=== PATIENT | male | born 1990 | race Hispanic/Latino ===

== ENCOUNTER 2020-06-07 11:55 | Emergency (ER) | payer BC, SELFPAY ==
[2020-06-07] MEDS ORDERED: IPRATROPIUM BROM 0.5MG/2.5ML ONE (12:40)
[2020-06-07] MEDS ORDERED: predniSONE 20 MG TAB ONE (12:41)
[2020-06-07] MEDS ORDERED: ALBUTEROL 2.5 MG/3 ML NEB SOL ONE (12:43)
--- NOTE | 2020-06-07 14:06 | RAD REPORT ---
EXAM DESCRIPTION: Mino Single View06/07/2020 12:54 pm CLINICAL HISTORY: Shortness of breath COMPARISON: none FINDINGS: Lungs are mildly to moderately hyperaerated with peribronchial thickening. The heart is normal size IMPRESSION: These findings may indicate reactive airway disease
--- NOTE | 2020-06-07 14:14 | ER ---
Nurse's Notes [facility] Name: Osvaldo Christianson Age: 29 yrs Sex: Male : 1990 Arrival Date: 06/07/2020 Time: 12:01 Bed 30 Private MD: Diagnosis: Acute bronchitis Presentation: 06/07 12:23 Chief complaint: Patient states: SOB and audible wheezing that began 4 days ago. Pt aa5 states "It's happened before when I vape but never this bad". 12:23 Coronavirus screen: shortness of breath. Ebola Screen: Patient negative for fever aa5 greater than or equal to 101.5 degrees Fahrenheit, and additional compatible Ebola Virus Disease symptoms. Initial Sepsis Screen: Does the patient meet any 2 criteria? HR > 90 bpm. Does the patient have a suspected source of infection? No. Patient's initial sepsis screen is negative. Risk Assessment: Do you want to hurt yourself or someone else? Patient reports no desire to harm self or others. Onset of symptoms was May 2020. 12:23 Acuity: KOREY 3 aa5 12:23 Method Of Arrival: Ambulatory aa5 Historical: - Allergies: 12:23 No Known Allergies; aa5 - PMHx: 12:23 None; aa5 - PSHx: 12:23 lymph node removerd right arm; aa5 - Immunization history:: Adult Immunizations unknown. - Social history:: Smoking status: Reported history of juuling and/or vaping. Screenin:30 Abuse screen: Denies threats or abuse. Nutritional screening: No deficits noted. aa5 Tuberculosis screening: No symptoms or risk factors identified. Fall Risk None identified. Assessment: 12:30 General: Appears uncomfortable, Behavior is calm, cooperative. Pain: Denies pain. aa5 Neuro: Level of Consciousness is awake, alert, obeys commands, Oriented to person, place, time, situation. Cardiovascular: Heart tones S1 S2 present Rhythm is regular. Respiratory: Airway is patent Respiratory effort is even, labored, Respiratory pattern is regular, symmetrical, tachypnea Breath sounds with wheezes bilaterally. GI: No signs and/or symptoms were reported involving the gastrointestinal system. : No signs and/or symptoms were reported regarding the genitourinary system. EENT: No signs and/or symptoms were reported regarding the EENT system. Derm: Skin is pink, warm \\T\\ dry. Musculoskeletal: Range of motion: intact in all extremities. 14:24 Reassessment: Patient is alert, oriented x 3, equal unlabored respirations, skin aa5 warm/dry/pink. Patient states feeling better. Patient states symptoms have improved. Vital Signs: 12:23 BP 145 / 82; Pulse 105; Resp 28 S; Temp 98.0(O); Pulse Ox 97% on R/A; aa5 ED Course: 12:01 Patient arrived in ED. mr 12:21 Norberto Ruiz PA is PHCP. [facility] 12:21 Carlton Simpson MD is Attending Physician. jmm 12:23 Arm band placed on. aa5 12:23 Patient has correct armband on for positive identification. aa5 12:31 Shira Gomez, RN is Primary Nurse. aa5 12:33 Triage completed. aa5 12:54 Chest Single View XRAY In Process Unspecified. EDMS 14:25 No provider procedures requiring assistance completed. Patient did not have IV access aa5 during this emergency room visit. Administered Medications: 12:30 Drug: predniSONE 60 mg Route: PO; aa5 14:24 Follow up: Response: No adverse reaction aa5 12:31 Drug: DuoNeb (albuterol 2.5 mg, ipratropium 0.5 mg) (3:1) (2.5 mg - 0.5 mg) 3 ml Route: aa5 Nebulizer; 12:55 Follow up: Response: No adverse reaction; Wheezing diminished aa5 Outcome: 14:14 Discharge ordered by . [facility] 14:24 Discharged to home ambulatory. aa5 14:24 Condition: improved 14:24 Discharge instructions given to patient, Instructed on discharge instructions, follow up and referral plans. medication usage, Demonstrated understanding of instructions, follow-up care, medications, Prescriptions given X 2. 14:25 Patient left the ED. aa5 Signatures: Dispatcher [employer] EDMS Norberto Ruiz PA PA jmm RiveraViv mr Shira Gomez, RN RN aa5
--- NOTE | 2020-06-07 14:14 | EDPHYS ---
Physician Documentation [facility] Name: Osvaldo Christianson Age: 29 yrs Sex: Male : 1990 Arrival Date: 06/07/2020 Time: 12:01 Bed 30 Private MD: ED Physician Carlton Simpson HPI: 06/07 12:25 This 29 yrs old Male presents to ER via Unassigned with complaints of jmm Breathing Difficulty, Wheezing. 12:25 The patient has shortness of breath at rest. Onset: The symptoms/episode began/occurred jmm gradually, 2 day(s) ago. Duration: The symptoms are continuous. The patient's shortness of breath is aggravated by nothing, is alleviated by nothing. Associated signs and symptoms: Pertinent negatives: fever. The patient has experienced a previous episode. This is a 29 year old male with no known chronic medical conditions that presents to the ED with complaints of wheezing and shortness of breath beginning approx 2 days ago. Patient states this has happened before and attributes this to his vaping. . Historical: - Allergies: 12:23 No Known Allergies; aa5 - PMHx: 12:23 None; aa5 - PSHx: 12:23 lymph node removerd right arm; aa5 - Immunization history:: Adult Immunizations unknown. - Social history:: Smoking status: Reported history of juuling and/or vaping. ROS: 12:25 Constitutional: Negative for fever, chills, and weight loss, Cardiovascular: Negative jmm for chest pain, palpitations, and edema. 12:25 Respiratory: Positive for shortness of breath, wheezing. 12:25 All other systems are negative. Exam: 12:25 Constitutional: This is a well developed, well nourished patient who is awake, alert, jmm and in no acute distress. Head/Face: atraumatic. Eyes: EOMI, no conjunctival erythema appreciated ENT: Moist Mucus Membranes Neck: Trachea midline, Supple Chest/axilla: Normal chest wall appearance and motion. Cardiovascular: Regular rate and rhythm. No edema appreciated 12:25 Abdomen/GI: Non distended, soft Back: Normal ROM Skin: General appearance color normal MS/ Extremity: Moves all extremities, no obvious deformities appreciated, no edema noted to the lower extremities Neuro: Awake and alert, normal gait Psych: Behavior is normal, Mood is normal, Patient is cooperative and pleasant 12:25 Respiratory: mild respiratory distress is noted, Respirations: normal, Breath sounds: wheezing: that is moderate, is heard diffusely. Vital Signs: 12:23 BP 145 / 82; Pulse 105; Resp 28 S; Temp 98.0(O); Pulse Ox 97% on R/A; aa5 MDM: 12:25 Patient medically screened. [facility] 14:12 Data reviewed: vital signs, nurses notes. Counseling: I had a detailed discussion with [facility] the patient and/or guardian regarding: the historical points, exam findings, and any diagnostic results supporting the discharge/admit diagnosis, radiology results, the need for outpatient follow up, to return to the emergency department if symptoms worsen or persist or if there are any questions or concerns that arise at home. ED course: Decreased wheezing on re evaluation. Patient states he feels much better. Patient will be prescribed oral steroids and inhaler and otherwise given strict return precautions. Patient understood and agrees with the plan of care. . 06/07 12:22 Order name: Chest Single View XRAY; Complete Time: 14:07 [facility] Administered Medications: 12:30 Drug: predniSONE 60 mg Route: PO; aa5 14:24 Follow up: Response: No adverse reaction aa5 12:31 Drug: DuoNeb (albuterol 2.5 mg, ipratropium 0.5 mg) (3:1) (2.5 mg - 0.5 mg) 3 ml Route: aa5 Nebulizer; 12:55 Follow up: Response: No adverse reaction; Wheezing diminished aa5 Disposition: 18:51 Co-signature as Attending Physician, Carlton Simpson MD I agree with the assessment and tw4 plan of care. Disposition: 06/07/20 14:14 Discharged to Home. Impression: Acute bronchitis. - Condition is Stable. - Discharge Instructions: Acute Bronchitis, Adult. - Prescriptions for Prednisone 20 mg Oral Tablet - take 3 tablet by ORAL route once daily for 5 days; 15 tablet. Albuterol Sulfate 90 mcg/actuation - inhale 1-2 puff by INHALATION route every 4-6 hours; 1 Inhaler. - Medication Reconciliation Form, Thank You Letter, Antibiotic Education, Prescription Opioid Use form. - Follow up: Private Physician; When: 2 - 3 days; Reason: Recheck today's complaints, Continuance of care, Re-evaluation by your physician. Signatures: Dispatcher [employer] Norberto Lane PA PA jmm Calderon, Audri, RN RN aa5 Carlton Simpson MD MD tw4 Corrections: (The following items were deleted from the chart) 14:25 14:14 06/07/2020 14:14 Discharged to Home. Impression: Acute bronchitis. Condition is aa5 Stable. Forms are Medication Reconciliation Form, Thank You Letter, Antibiotic Education, Prescription Opioid Use. Follow up: Private Physician; When: 2 - 3 days; Reason: Recheck today's complaints, Continuance of care, Re-evaluation by your physician. carolann
[2020-06-07 14:30] VITALS: BP 145/82; TEMP 98; O2SAT 97
== END 2020-06-07 14:25 | disposition home or self-care (01) ==
LOC: ER 11:55
DX: J20.9 Acute bronchitis, unspecified (principal); F17.290 Nicotine dependence, other tobacco product, uncomplicated
CPT/HCPCS: 71045; 99284; J7512

== ENCOUNTER 2022-01-22 11:14 | Emergency (ER) | payer OTHER ==
--- OUTSIDE RECORDS SUMMARY | 2022-01-22 11:21 | XMS REPORT | Continuity of Care Document ---
:1990 Author Organization [facility] t Address [address] [place] [address] Care Team Providers Name Role Phone Pcp, Patient Does Not Have A Primary Care Physician +[id number] Only, Ang Db Test Attending Clinician Unavailable Yosi CHILDCARE PROVIDER, Shi Attending Clinician SHI DELUCA Attending Clinician Unavailable Sergio GOODMAN, Dari Mcclure Attending Clinician Unavailable Jose GOODMAN, Catia Kahn Attending Clinician Unavailable SEJAL HEART Attending Clinician Unavailable Doctor Unassigned, [place] Attending Clinician Unavailable Payers Payer Name Policy Type Policy Effective Date Expiration Date Sour ce Number BCBS OF [id number] [facility] [place] Srinia giana [id number] [place] -Pres [phone] [id number], [place] [address]CBZ/POS Problems This patient has no known problems. Allergies, Adverse Reactions, Alerts Allergy Allergy Status Severity Reaction(s) Onset Inactive Treating Comm ents Source Name Type Date Date Clinician NO KNOWN Drug Active Univers ALLERGIE Class ity of S [facility] Social History Social Habit Start Date Stop Date Quantity Comments Source Exposure to Yes [facility] SARS-CoV-2 (event) Medica l [place] Sex Assigned At [birth year] [place] [facility] 00:00:00 00:00:00 [facility] Smoking Status Start Date Stop Date Source Unknown if ever smoked [facility] Medications This patient has no known medications. Procedures This patient has no known procedures. Encounters Start End Encounter Admission Attending Care Care Encounter Source Date/Time Date/Time Type Type Clinicians Facility Department ID 2020-11-26 2020-11-26 Laboratory Only, Ang Db Test [facility] [id number] Univers 10:16:48 10:26:48 Only YosiShi [facility] [id number] ity of [place] [id number] Nabeel as Sridhar?Blea [phone] [address] Medical Office Building 2020-11-26 2020-11-26 Outpatient R YOSI [facility] [id number] Univers 10:15:00 10:15:00 SHI ity [facility] 2020-11-26 2020-11-26 Telephone JENNIFER Hill [id number] Univers 00:00:00 00:00:00 Dari RUTLEDGE [id number] i ty of HOSPITAL [id number] Nabeel as [id number] [address] 2020-11-18 2020-11-18 Letter JENNIFER Garcia [id number] Univers 00:00:00 00:00:00 (Out) Catia RUTLEDGE [id number] it y of HOSPITAL [id number] Nabeel as [id number] [address] 2020-11-17 2020-11-17 Outpatient R SLY [facility] [id number] Univers 11:15:00 11:15:00 , SEJAL sanchez [facility] 2020-11-17 2020-11-17 Letter Doctor RODRIGUEZ [id number] Univers 00:00:00 00:00:00 (Out) UnassignedAAMIR [id number] ity of [place] HOSPITAL [id number] Nabeel as [phone] [address] 2020-11-17 2020-11-17 Letter Doctor RODRIGUEZ [id number] Univers 00:00:00 00:00:00 (Out) UnassignedAAMIR [id number] ity of [place] HOSPITAL [id number] Nabeel as [phone] [facility] [address] Results This patient has no known results.
[2022-01-22] MEDS ORDERED: METHYLPREDNISOLONE 125 MG INJ ONE (11:47)
[2022-01-22] MEDS ORDERED: ALBUTEROL 2.5 MG/3 ML NEB SOL ONE ×2 (11:47→13:09)
[2022-01-22] MEDS ORDERED: IPRATROPIUM BROM 0.5MG/2.5ML ONE (11:48)
[2022-01-22] MEDS ORDERED: MAGNESIUM SULFATE 1 gm IVPB 1 GM/100 ML BAG IV ONE (11:48)
--- NOTE | 2022-01-22 12:26 | RAD REPORT ---
EXAM DESCRIPTION: RAD - Chest Single View - 01/22/2022 12:22 pm CLINICAL HISTORY: Cough COMPARISON: Chest Single View dated 06/07/2020 FINDINGS: Lines: None. Lungs: No evidence of edema or pneumonia. Pleural: No significant pleural effusions or pneumothorax. Cardiac: The heart size is within normal limits. Mediastinum: Within normal limits. Bones: No acute fractures. Other: None IMPRESSION: No acute cardiopulmonary disease.
--- NOTE | 2022-01-22 13:22 | ER ---
Nurse's Notes [facility] Name: Osvaldo Christianson Age: 31 yrs Sex: Male : 1990 Arrival Date: 01/22/2022 Time: 11:17 Bed 12 Private MD: Diagnosis: Acute bronchitis, unspecified Presentation: 01/22 11:33 Chief complaint: Patient states: Difficulty breathing X 2-3 days. Pt reports this ld1 happening before. Coronavirus screen: At this time, the client does not indicate any symptoms associated with coronavirus-19. Ebola Screen: No symptoms or risks identified at this time. Initial Sepsis Screen: Does the patient meet any 2 criteria? No. Patient's initial sepsis screen is negative. Does the patient have a suspected source of infection? No. Patient's initial sepsis screen is negative. Risk Assessment: Do you want to hurt yourself or someone else? Patient reports no desire to harm self or others. Onset of symptoms was January 22, 2022. 11:33 Method Of Arrival: Ambulatory ld1 11:33 Acuity: KOREY 3 ld1 Triage Assessment: 11:33 General: Appears in no apparent distress. comfortable, Behavior is calm, cooperative, ld1 appropriate for age. Pain: Denies pain. EENT: No signs and/or symptoms were reported regarding the EENT system. Neuro: Level of Consciousness is awake, alert, obeys commands, Oriented to person, place, time, situation. Cardiovascular: Capillary refill < 3 seconds Patient's skin is warm and dry. Respiratory: Reports shortness of breath at rest on exertion Airway is patent Respiratory effort is even, labored, Onset: The symptoms/episode began/occurred suddenly, the patient has moderate shortness of breath. GI: Abdomen is flat, non-distended. : No signs and/or symptoms were reported regarding the genitourinary system. Derm: No signs and/or symptoms reported regarding the dermatologic system. Musculoskeletal: No signs and/or symptoms reported regarding the musculoskeletal system. Historical: - Allergies: 11:35 No Known Allergies; ld1 - PMHx: 11:35 None; ld1 - PSHx: 11:35 None; ld1 - Immunization history:: Adult Immunizations up to date. - Social history:: Smoking status: Patient reports the use of cigarette tobacco products, smokes one-half pack cigarettes per day, Patient uses alcohol, occasionally. Screenin:35 Abuse screen: Denies threats or abuse. Denies injuries from another. Nutritional bp screening: No deficits noted. Tuberculosis screening: No symptoms or risk factors identified. Fall Risk None identified. Assessment: 11:35 General: SEE TRIAGE NOTE. bp 12:15 Reassessment: PT MOVED TO RM 12. Cardiovascular: Rhythm is sinus tachycardia. bp Respiratory: Airway is patent Respiratory effort is labored, Breath sounds with wheezes bilaterally. 13:51 Reassessment: Patient appears in no apparent distress at this time. Patient and/or ph family updated on plan of care and expected duration. Pain level reassessed. Patient is alert, oriented x 3, equal unlabored respirations, skin warm/dry/pink. Patient states symptoms have improved. 13:53 Reassessment: D/C pending completion of neb tx. ph Vital Signs: 11:33 BP 113 / 80; Pulse 106; Resp 30; Temp 97.3(TE); Pulse Ox 93% on R/A; Weight 74.84 kg; ld1 Height 5 ft. 2 in. (157.48 cm); Pain 0/10; 12:15 BP 120 / 87; Pulse 102; Resp 18; Pulse Ox 100% ; bp 13:49 BP 118 / 75; Pulse 104; Resp 18; Temp 97.5; Pulse Ox 98% on R/A; ph 11:33 Body Mass Index 30.18 (74.84 kg, 157.48 cm) ld1 ED Course: 11:17 Patient arrived in ED. mr 11:18 Guera Bernard FNP-C is [facility]. kb 11:18 Vinayak Jackson MD is Attending Physician. kb 11:33 Arm band placed on right wrist. ld1 11:35 Triage completed. ld1 11:35 Patient has correct armband on for positive identification. Bed in low position. Call bp light in reach. Side rails up X2. 11:41 Narayan López, MAXINE is Primary Nurse. bp 11:55 Inserted saline lock: 20 gauge in right forearm, using aseptic technique. bp 12:23 Chest Single View XRAY In Process Unspecified. EDMS 14:24 No provider procedures requiring assistance completed. IV discontinued, intact, ph bleeding controlled, No redness/swelling at site. Pressure dressing applied. Administered Medications: 11:55 Drug: Magnesium Sulfate 1 grams Route: IVPB; Infused Over: 1 hrs; Site: right forearm; bp 13:00 Follow up: Response: No adverse reaction; IV Status: Completed infusion ph 11:55 Drug: SOLU-Medrol (methylPrednisoLONE) 125 mg Route: IVP; Site: right forearm; bp 13:50 Follow up: Response: No adverse reaction ph 11:55 Drug: DuoNeb (albuterol 2.5 mg, ipratropium 0.5 mg) (3:1) (2.5 mg - 0.5 mg) 3 ml Route: bp Nebulizer; 13:50 Follow up: Response: No adverse reaction ph 13:49 Drug: Albuterol 2.5 mg Route: Inhalation; ph 13:50 Follow up: Response: No adverse reaction ph Medication: 11:35 VIS not applicable for this client. bp Outcome: 13:22 Discharge ordered by . kb 14:24 Discharged to home ambulatory. ph 14:24 Condition: good 14:24 Discharge instructions given to patient, Instructed on discharge instructions, follow up and referral plans. medication usage, Demonstrated understanding of instructions, follow-up care, medications, Prescriptions given X 2. 14:25 Patient left the ED. ph Signatures: Dispatcher [employer] EDMS Guera Bernard FNP-C FNP-Abigail Phillipa Viv wan Alcira Jay RN RN Narayan López RN RN bp Juliette Healy, MAXINE RN ld1 Corrections: (The following items were deleted from the chart) 11:36 11:33 Pulse 106bpm; Resp 30bpm; Temp 97.3F Temporal; 74.84 kg; Height 5 ft. 2 in.; BMI: ld1 30.1; Pain 0/10; ld1 11:37 11:33 BP 113 / 80; Pulse 106bpm; Resp 30bpm; Temp 97.3F Temporal; 74.84 kg; Height 5 ld1 ft. 2 in.; BMI: 30.1; Pain 0/10; ld1
--- NOTE | 2022-01-22 13:23 | EDPHYS ---
Physician Documentation [facility] Name: Osvaldo Christianson Age: 31 yrs Sex: Male : 1990 Arrival Date: 01/22/2022 Time: 11:17 Bed 12 Private MD: ED Physician Vinayak Jackson HPI: 01/22 11:41 This 31 yrs old Male presents to ER via Ambulatory with complaints of kb Breathing Difficulty. 11:41 The patient has shortness of breath at rest. Onset: The symptoms/episode began/occurred kb 3 day(s) ago. Duration: The symptoms are continuous. The patient's shortness of breath is aggravated by exertion, is alleviated by nothing. Associated signs and symptoms: Pertinent positives: non-productive cough. Severity of symptoms: At their worst the symptoms were moderate in the emergency department the symptoms are unchanged. The patient has not experienced similar symptoms in the past. The patient has not recently seen a physician. Pt reports cough, congestion and shortness of breath that started a few days ago. States it feels the same as bronchitis he had last year. Historical: - Allergies: 11:35 No Known Allergies; ld1 - PMHx: 11:35 None; ld1 - PSHx: 11:35 None; ld1 - Immunization history:: Adult Immunizations up to date. - Social history:: Smoking status: Patient reports the use of cigarette tobacco products, smokes one-half pack cigarettes per day, Patient uses alcohol, occasionally. ROS: 11:41 Constitutional: Negative for fever, chills, and weight loss. kb 11:41 ENT: Positive for rhinorrhea, sinus congestion. 11:41 Respiratory: Positive for cough, dyspnea on exertion, shortness of breath. 11:41 All other systems are negative. Exam: 11:41 Constitutional: This is a well developed, well nourished patient who is awake, alert, kb and in no acute distress. Head/Face: Normocephalic, atraumatic. ENT: Moist Mucous membranes Cardiovascular: Regular rate and rhythm with a normal S1 and S2. No gallops, murmurs, or rubs. No pulse deficits. Abdomen/GI: Soft, non-tender. No distention Skin: Warm, dry with normal turgor. Normal color. MS/ Extremity: Pulses equal, no cyanosis. Neurovascular intact. Full, normal range of motion. Neuro: Awake and alert, GCS 15, oriented to person, place, time, and situation. Moves all extremities. Normal gait. Psych: Awake, alert, with orientation to person, place and time. Behavior, mood, and affect are within normal limits. 11:41 Respiratory: mild respiratory distress is noted, Respirations: labored breathing, that is mild, Breath sounds: wheezing: inspiratory expiratory that is moderate, is scattered. Vital Signs: 11:33 BP 113 / 80; Pulse 106; Resp 30; Temp 97.3(TE); Pulse Ox 93% on R/A; Weight 74.84 kg; ld1 Height 5 ft. 2 in. (157.48 cm); Pain 0/10; 12:15 BP 120 / 87; Pulse 102; Resp 18; Pulse Ox 100% ; bp 13:49 BP 118 / 75; Pulse 104; Resp 18; Temp 97.5; Pulse Ox 98% on R/A; ph 11:33 Body Mass Index 30.18 (74.84 kg, 157.48 cm) ld1 MDM: 11:35 Patient medically screened. kb 11:40 Data reviewed: vital signs, nurses notes. Data interpreted: Pulse oximetry: on room air kb is 93 %. Interpretation: acceptable. 12:56 Counseling: I had a detailed discussion with the patient and/or guardian regarding: the kb historical points, exam findings, and any diagnostic results supporting the discharge/admit diagnosis, lab results, radiology results, the need for outpatient follow up, a family practitioner, to return to the emergency department if symptoms worsen or persist or if there are any questions or concerns that arise at home. Response to treatment: the patient's symptoms have markedly improved after treatment. 01/22 11:36 Order name: Flu; Complete Time: 12:45 kb 01/22 11:36 Order name: COVID-19 SARS RT PCR (Document "Date of Onset" if Symptomatic); Complete kb Time: 12:51 01/22 11:36 Order name: Chest Single View XRAY; Complete Time: 12:28 kb 01/22 11:36 Order name: IV Start; Complete Time: 12:14 kb 01/22 12:56 Order name: Vital Signs; Complete Time: 13:49 kb Administered Medications: 11:55 Drug: Magnesium Sulfate 1 grams Route: IVPB; Infused Over: 1 hrs; Site: right forearm; bp 13:00 Follow up: Response: No adverse reaction; IV Status: Completed infusion ph 11:55 Drug: SOLU-Medrol (methylPrednisoLONE) 125 mg Route: IVP; Site: right forearm; bp 13:50 Follow up: Response: No adverse reaction ph 11:55 Drug: DuoNeb (albuterol 2.5 mg, ipratropium 0.5 mg) (3:1) (2.5 mg - 0.5 mg) 3 ml Route: bp Nebulizer; 13:50 Follow up: Response: No adverse reaction ph 13:49 Drug: Albuterol 2.5 mg Route: Inhalation; ph 13:50 Follow up: Response: No adverse reaction ph Disposition Summary: 01/22/22 13:22 Discharge Ordered Location: Home kb Condition: Stable kb Diagnosis - Acute bronchitis, unspecified kb Followup: kb - With: Emergency Department - When: As needed - Reason: Worsening of condition Followup: kb - With: Private Physician - When: 2 - 3 days - Reason: Recheck today's complaints, Continuance of care, Re-evaluation by your physician Discharge Instructions: - Discharge Summary Sheet kb - Acute Bronchitis, Adult, [id number] kb Forms: - Medication Reconciliation Form kb - Thank You Letter kb - Antibiotic Education kb - Prescription Opioid Use kb - Work release form Prescriptions: - albuterol sulfate 90 mcg/actuation Inhalation HFA aerosol inhaler - inhale 2 puff by INHALATION route every 4-6 hours As needed; 1 Inhaler; kb Refills: 0, Product Selection Permitted - Prednisone 20 mg Oral Tablet - take 1 tablet by ORAL route once daily for 5 days; 5 tablet; Refills: 0, kb Product Selection Permitted Signatures: Dispatcher [employer] Guera Seth FNP-C FNP-Ckb Hall, Patricia RN RN ph Narayan López RN RN Juliette Green RN RN ld1
[2022-01-22 14:50] VITALS: BP 118/75; TEMP 97.5; O2SAT 98
== END 2022-01-22 14:25 | disposition home or self-care (01) ==
LOC: ER 11:14
DX: J20.9 Acute bronchitis, unspecified (principal); Z20.822 Contact with and (suspected) exposure to COVID-19; F17.210 Nicotine dependence, cigarettes, uncomplicated
CPT/HCPCS: 96365; 87804 ×2; 71045; 94640; 96375; 99285; U0003; J3475; J2930